=== PATIENT | female | born 1960 | race Caucasian/White ===

== ENCOUNTER 2024-11-24 23:44 | Emergency (ER) | payer BC ==
--- NOTE | 2024-11-25 00:24 | ED ---
Back Pain HPI - General Chief Complaint: Back Pain/Injury Stated Complaint: Back pain Time Seen by Provider: 11/25/24 00:19 Source: patient, RN notes reviewed Limitations: no limitations - History of Present Illness Initial Comments: 64-year-old female presenting for low back pain x 2 days. States she has been dealing with back issues since May and has been following with a chiropractor. States it has been under control until she had an injury 3 days ago. States she was on a swing with her granddaughter and hit her feet hard on the ground which jorge a her back. States the pain is a pins and needle sensation located on the right lower back. She also experiences occasional muscle spasms. Pain does not radiate. States she cannot get comfortable and is afraid to sit down due to the pain. Denies bowel or bladder incontinence. Denies saddle anesthesia. Denies numbness, tingling, or weakness of the bilateral legs. No urinary symptoms. Patient has been alternating Tylenol and as well with no relief. Denies blood thinners. - Related Data Previous Rx's Medication Instructions Recorded Cyclobenzaprine [Flexeril] 10 mg PO TID PRN #15 tab 11/25/24 Lidocaine 4% Patch 1 patch TOPICAL DAILY PRN 7 Days 11/25/24 #7 patch Naproxen 500 mg PO Q12H PRN #30 tab 11/25/24 Allergies Allergy/AdvReac Type Severity Reaction Status Date / Time Penicillins Allergy Unknown Verified 11/24/24 23:52 Review of Systems ROS Statement: Those systems with pertinent positive or pertinent negative responses have been documented in the HPI. ROS Other: All systems not noted in ROS Statement are negative. Past Medical History Past Medical History: No Reported History History of Any Multi-Drug Resistant Organisms: None Reported Past Surgical History: No Surgical Hx Reported Past Psychological History: No Psychological Hx Reported Smoking Status: Never smoker Past Alcohol Use History: None Reported Past Drug Use History: None Reported General Exam Limitations: no limitations General appearance: alert, in no apparent distress Head exam: Present: atraumatic, normocephalic, normal inspection GI/Abdominal exam: Present: soft, normal bowel sounds. Absent: distended, tenderness, guarding, rebound, rigid Back exam: Present: normal inspection, full ROM, muscle spasm, paraspinal tenderness (Right-sided lumbar paraspinal tenderness), other (Full strength and range of motion of bilateral lower extremities, full sensation and DP pulses bilaterally, no saddle anesthesia). Absent: CVA tenderness (R), CVA tenderness (L), vertebral tenderness Neurological exam: Present: alert, oriented X3 Psychiatric exam: Present: normal affect, normal mood Skin exam: Present: warm, dry, intact, normal color. Absent: rash Course Vital Signs 11/24/24 23:46 Temperature 97.5 F L Pulse Rate 67 Respiratory 17 Rate Blood Pressure 167/76 O2 Sat by Pulse 99 Oximetry Medical Decision Making - Medical Decision Making Was pt. sent in by a medical professional or institution (, PA, [employer], urgent care, hospital, or half-way...) When possible be specific @ -No Did you speak to anyone other than the patient for history (EMS, parent, family, police, friend...)? What history was obtained from this source @ -No Did you review nursing and triage notes (agree or disagree)? Why? @ -I reviewed and agree with nursing and triage notes Were old charts reviewed (outside hosp., previous admission, EMS record, old EKG, old radiological studies, urgent care reports/EKG's, half-way records)? Report findings @ -No old charts were reviewed Differential Diagnosis (chest pain, altered mental status, abdominal pain women, abdominal pain men, vaginal bleeding, weakness, fever, dyspnea, syncope, headache, dizziness, GI bleed, back pain, seizure, CVA, palpatations, mental health, musculoskeletal)? @ -Differential Back Pain: Strain, zoster, cauda equina syndrome, epidural abscess, vertebral osteomyelitis, discitis, fracture, subluxation, disc herniation, DJD, spinal stenosis, dissection, AAA, pancreatitis, peptic ulcer disease, pyelonephritis, kidney stone, this is not meant to be an all-inclusive list. EKG interpreted by me (3pts min.). @ -None X-rays interpreted by me (1pt min.). @ -X-ray lumbar spine reveals no acute process CT interpreted by me (1pt min.). @ -None done U/S interpreted by me (1pt. min.). @ -None done What testing was considered but not performed or refused? (CT, X-rays, U/S, labs)? Why? @ -None What meds were considered but not given or refused? Why? @ -None Did you discuss the management of the patient with other professionals (professionals i.e. DrLucila, PA, [employer], lab, RT, psych nurse, adoption social worker, watch repair person, teacher, training and development officer, case management associate)? Give summary @ -No Was smoking cessation discussed for >3mins.? @ -No Was critical care preformed (if so, how long)? @ -No Were there social determinants of health that impacted care today? How? (Homelessness, low income, unemployed, alcoholism, drug addiction, transportation, low edu. Level, literacy, decrease access to med. care, custodial, rehab)? @ -No Was there de-escalation of care discussed even if they declined (Discuss DNR or withdrawal of care, Hospice)? DNR status @ -No What co-morbidities impacted this encounter? (DM, HTN, Smoking, COPD, CAD, Cancer, CVA, ARF, Chemo, Hep., AIDS, mental health diagnosis, sleep apnea, morbid obesity)? @ -None Was patient admitted / discharged? Hospital course, mention meds given and route, prescriptions, significant lab abnormalities, going to OR and other pertinent info. @ -Discharge. 64-year-old female presenting for low back pain x 2 days. Patient believes she jorge a her back while on a swing 3 days ago when her feet hit the ground hard. No red flag symptoms. Neurovascularly intact. There is some right-sided paraspinal tenderness. Provided with IM Toradol, IM Norflex, and lidocaine patch. X-ray lumbar spine reveals no acute process. Urinalysis reveals 24 white blood cells however patient is having no urinary symptoms, negative for blood. Discussed diagnosis of low back strain with patient. Upon reevaluation, patient reports continued uncontrolled pain. Patient will be provided with 1 [place]. Provided with outpatient prescription for lidocaine patches, Flexeril, and naproxen. Appropriate return precautions and follow-up care discussed. Case was discussed with my ED attending Dr. Welch. Undiagnosed new problem with uncertain prognosis? @ -No Drug Therapy requiring intensive monitoring for toxicity (Heparin, Nitro, Insulin, Cardizem)? @ -No Were any procedures done? @ -No Diagnosis/symptom? @ -Low back strain Acute, or Chronic, or Acute on Chronic? @ -Acute Uncomplicated (without systemic symptoms) or Complicated (systemic symptoms)? @ -Uncomplicated Side effects of treatment? @ -No Exacerbation, Progression, or Severe Exacerbation? @ -No Poses a threat to life or bodily function? How? (Chest pain, [place], [place], pneumonia, PE, COPD, DKA, ARF, appy, cholecystitis, CVA, Diverticulitis, Homicidal, Suicidal, threat to staff... and all critical care pts) @ -No - Lab Data Lab Results 11/25/24 Range/Units 00:34 Urine Color Light Yellow Urine Appearance Clear (Clear) Urine pH 5.5 (5.0-8.0) Ur Specific [place] 1.035 (1.001-1.035) Urine Protein Negative (Negative) Urine Glucose (UA) Negative (Negative) Urine Ketones Negative (Negative) Urine Blood Negative (Negative) Urine Nitrite Negative (Negative) Urine Bilirubin Negative (Negative) Urine Urobilinogen <2.0 (<2.0) mg/dL Ur Leukocyte Esterase Small H (Negative) Urine RBC 3 (0-5) /hpf Urine WBC 24 H (0-5) /hpf Ur Squamous Epith Cells <1 (0-4) /hpf Hyaline Casts 5 H (0-2) /lpf Urine Mucus Rare H (None) /hpf Disposition Clinical Impression: Low back strain Disposition: HOME SELF-CARE Condition: Stable Instructions (If sedation given, give patient instructions): Acute Low Back Pain (ED) Additional Instructions: Take naproxen, Flexeril, and lidocaine patch as needed for pain. Use heating pads at home. Follow-up with orthopedics as discussed. Please return to the Emergency Department if symptoms worsen or any other concerns. Prescriptions: Cyclobenzaprine [Flexeril] 10 mg PO TID PRN #15 tab PRN Reason: Muscle Spasm Lidocaine 4% Patch 1 patch TOPICAL DAILY PRN 7 Days #7 patch PRN Reason: Pain Naproxen 500 mg PO Q12H PRN #30 tab PRN Reason: Pain Is patient prescribed a controlled substance at d/c from ED?: No Referrals: Bita Means MD [Primary Care Provider] - 1-2 days Benito Camacho DO [Doctor of Osteopathic Medicine] - 1-2 days Time of Disposition: 02:49
[2024-11-25] MEDS: ORPHENADRINE 30 MG/ML 2 ML VIAL IM STA (00:29)
[2024-11-25] MEDS: KETOROLAC 15 MG/ML 1 ML VIAL IM STA (00:30)
[2024-11-25] MEDS: LIDOCAINE 4% PATCH TOPICAL ONE (00:30)
[2024-11-25 00:47] LABS: Appearance,Urine Clear (Clear); Bilirubin,Urine Negative (Negative); Blood,Urine Negative (Negative); Color,Urine Light Yellow; Glucose,Urine (UA) Negative (Negative); Hyaline Casts,Urine 5 /lpf (0-2); Ketones,Urine Negative (Negative); Leukocyte Esterase,Urine Small (Negative); Mucus,Urine Rare /hpf; Nitrite,Urine Negative (Negative); PH, Urine 5.5 (5.0-8.0); Protein,Urine Negative (Negative); RBC,Urine 3 /hpf (0-5); Specific Gravity,Urine 1.035 (1.001-1.035); Squamous Epithelial Cell,Urine <1 /hpf (0-4); Urobilinogen,Urine <2.0 mg/dL (<2.0); WBC,Urine 24 /hpf (0-5)
--- NOTE | 2024-11-25 02:21 | XR ---
EXAM: XR Lumbosacral Spine, 2 or 3 Views CLINICAL HISTORY: ITS.REASON XR Reason: low back injury TECHNIQUE: Frontal and lateral views of the lumbar spine and sacrum. COMPARISON: No relevant prior studies available. FINDINGS: Vertebrae: No acute fracture. Dextroscoliosis Disc spaces: Degenerative changes. Soft tissues: Unremarkable. IMPRESSION: No acute findings.
[2024-11-25] MEDS: HYDROcodone/APAP 5-325MG 1 EACH TAB PO STA (03:04)
[2024-11-25 03:11] VITALS: BP 123/79; PULSE 78; RESP 18; TEMP 97.7
== END 2024-11-25 03:13 | disposition home or self-care (01) ==
LOC: EC 23:44
DX: S39.012A Strain of muscle, fascia and tendon of lower back, initial encounter (principal); Z88.0 Allergy status to penicillin; W22.8XXA Striking against or struck by other objects, initial encounter
CPT/HCPCS: 81001; 72100; 99283; 96372 ×2; J2360; J1885